=== PATIENT | male | born 1975 | race African-American/Black ===

== ENCOUNTER 2016-07-26 02:35 | Emergency (ER) | payer OTHER ==
[2016-07-26] MEDS ORDERED: cefTRIAXone\\ROCEPHIN 1 GM VIAL ONE (03:16)
[2016-07-26] MEDS ORDERED: Acetaminophen 500 MG TAB ONE (03:16)
== END 2016-07-26 03:53 | disposition home or self-care (01) ==
LOC: NAV ERS 02:35
DX: K04.7 Periapical abscess without sinus (principal); K02.9 Dental caries, unspecified; I10 Essential (primary) hypertension; Z87.891 Personal history of nicotine dependence
CPT/HCPCS: 96372; J0696